=== PATIENT | male | born 1995 | race African-American/Black ===

== ENCOUNTER 2019-11-03 18:01 | Emergency (ER) | payer MEDICAID ==
[~2019-11-03] VITALS: Ht 193 cm; Wt 76.9 kg
[2019-11-03 18:13] VITALS: Ht 193 cm; Wt 76.9 kg
[2019-11-03] MEDS ORDERED: ELAVIL10 MG PO (18:16)
[2019-11-03] MEDS ORDERED: CYCLOBENZAPRINE10 MG PO (19:21)
[2019-11-03] MEDS ORDERED: EC-NAPROSYN500 MG PO (19:21)
[2019-11-03 19:49] VITALS: BP 116/66
== END 2019-11-03 19:50 | disposition home or self-care (01) ==
LOC: D.ER 18:01
DX: S16.1XXA Strain of muscle, fascia and tendon at neck level, initial encounter (principal); M94.0 Chondrocostal junction syndrome [Tietze]; M62.838 Other muscle spasm